=== PATIENT | female | born 2000 | race Caucasian/White ===

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

== ENCOUNTER 2020-05-07 11:50 | Inpatient (IN) | payer OTHER ==
[2020-05-16] MEDS ORDERED: OXYTOCIN 10 UNIT/ML 1 ML VIAL IM PRN (06:10)
[2020-05-16] MEDS ORDERED: LIDOCAINE 0.5% (PF) 5 MG/ML (50 ML SDV) SQ PRN (06:10)
[2020-05-16] MEDS ORDERED: TERBUTALINE 1 MG/ML VIAL SQ PRN (06:10)
[2020-05-16] MEDS ORDERED: CARBOPROST TROMETHAMINE 250 MCG/ML 1 ML AMP IM PRN (06:10)
[2020-05-16] MEDS ORDERED: METHYLERGONOVINE 0.2 MG/ML 1 ML AMP IM PRN (06:10)
[2020-05-16] MEDS: LACTATED RINGERS 1,000 ML IV SCH ×3 (06:23→20:04)
[2020-05-16] MEDS: OXYTOCIN 30 UNITS/500 ML NS 30 UNIT in SALINE 1 500ML.BAG IV SCH ×2 (06:32→16:18)
[2020-05-16 06:49] LABS: Anisocytosis Slight; Basophils # (A) 0.1 k/uL (0-0.2); Basophils % (A) 1 %; Eosinophils # (A) 0.1 k/uL (0-0.7); Eosinophils % (A) 1 %; HCT 32.1 % (34.0-46.0); HGB 10.2 gm/dL (11.4-16.0); Hypochromasia Marked; Lymphocytes # (A) 2.7 k/uL (1.0-4.8); Lymphocytes % (A) 28 %; MCH 22.6 pg (25.0-35.0); MCHC 31.7 g/dL (31.0-37.0); MCV 71.2 fL (80.0-100.0); Mean Platelet Volume 8.8; Microcytosis Moderate; Monocytes # (A) 0.6 k/uL (0-1.0); Monocytes % (A) 6 %; Neutrophils # (A) 6.1 k/uL (1.3-7.7); Neutrophils % (A) 63 %; Platelet Count 303 k/uL (150-450); Poikilocytosis Slight; RBC 4.51 m/uL (3.80-5.40); RDW 16.1 % (11.5-15.5); WBC 9.6 k/uL (4.0-11.0)
[2020-05-16 07:28] LABS: Glucose,Whole Blood 90 mg/dL (75-99)
--- NOTE | 2020-05-16 07:30 | P.HPOB ---
History of Present Illness H&P Date: 05/16/20 Chief Complaint: Here for induction of labor for postdates This is a 20-year-old female 1 para 0 EDC 05/07/2020 by good dating measures presents at 41-2/7 weeks' gestation for induction of labor. Ultrasound yesterday revealed HUYEN of 3, grade 3 placenta. Patient is unable to tolerate pelvic exams. She states fetus is been active throughout the . Past medical history is significant for age 11 cm left ovarian cyst diagnosed in April 2019. Past surgical history significant for right foot surgery as a child. Current medications vitamins daily. ALLERGIES none known. Family history unremarkable. Social history patient works part-time at a local [employer], father of the baby is involved. She is a former smoker, denies alcohol drug use or bleeding with . history blood type is O+, rubella status immune. Gonorrhea and chlamydia cultures, HIV testing, group B strep cultures, hepatitis B surface antigen, urine culture all negative. Rubella status immune. One-hour Glucola 170, three-hour GTT consistent with gestational diabetes. Patient is 5 foot 3 inches, 133 pounds, blood pressure 131/72. Fasting blood sugar 90. General physical exam is within normal limits. Patient show sign of poor nutrition. heart rate is consistent with reactive NST. Cervix is unable to be checked, patient unable to tolerate pelvic exams. In the office yesterday cervix was noted to be quite thin, -1 station, vertex presentation. I was unable to adequately assess cervical dilation in the office yesterday. Impression: 41-2/7 weeks intrauterine , here for induction of labor. All signs reassuring at this time. Plan: Oxytocin has been started. Epidural will be placed at this time. After epidural was placed and we'll check patient's cervix and perform amniotomy. Oxytocin per hospital protocol. Continue close maternal and surveillance. Anticipate normal spontaneous vaginal delivery. manager technical services consult to be ordered. Review of Systems Constitutional: Reports as per HPI Past Medical History Past Medical History: No Reported History Additional Past Medical History / Comment(s): ovarian cysts, gestational diabetes History of Any Multi-Drug Resistant Organisms: None Reported Past Surgical History: No Surgical Hx Reported Additional Past Surgical History / Comment(s): Foot surgery 2017 Past Anesthesia/Blood Transfusion Reactions: No Reported Reaction Past Psychological History: No Psychological Hx Reported Smoking Status: Never smoker Past Alcohol Use History: None Reported Past Drug Use History: None Reported Medications and Allergies Home Medications Medication Instructions Recorded Confirmed Type Pnv No.95/Ferrous Fum/Folic AC 1 each PO DAILY 04/11/20 05/16/20 History [ Multivitamin Tablet] Allergies Allergy/AdvReac Type Severity Reaction Status Date / Time No Known Allergies Allergy Verified 05/14/20 14:31 Exam Vital Signs Temp Pulse Resp BP 05/16/20 06:09 96.6 F L 101 H 16 131/72 Intake and Output 05/15/20 05/16/20 05/16/20 22:59 06:59 14:59 Other: Weight 60.328 kg See dictation under HPI please Results Result Diagrams: 05/16/20 06:17 Abnormal Lab Results - Last 24 Hours (Table) 05/16/20 Range/Units 06:17 Hgb 10.2 L (11.4-16.0) gm/dL Hct 32.1 L (34.0-46.0) % MCV 71.2 L (80.0-100.0) fL MCH 22.6 L (25.0-35.0) pg RDW 16.1 H (11.5-15.5) % Assessment and Plan Assessment: 41-2/7 weeks intrauterine , oligohydramnios, grade 3 placenta, patient unable to tolerate pelvic exams. Her for induction of labor. Plan: Oxytocin has been started. Epidural will be placed at this time. When patient is comfortable I will perform amniotomy. Close maternal and surveillance. Anticipate normal spontaneous vaginal delivery. Time with Patient: Less than 30
[2020-05-16] MEDS ORDERED: SODIUM CHLORIDE 0.9% 100 ML BAG ONE (07:40)
[2020-05-16] MEDS ORDERED: ROPIVACAINE 5MG/ML 20ML VIAL ONE (07:40)
[2020-05-16] MEDS ORDERED: fentaNYL (PF) 50 MCG/ML 5 ML AMP ONE (07:40)
[2020-05-16] MEDS ORDERED: METHYLERGONOVINE 0.2 MG/ML 1 ML AMP ONE (14:45)
[2020-05-16] MEDS ORDERED: OXYTOCIN 10 UNIT/ML 1 ML VIAL ONE (14:45)
[2020-05-16] MEDS ORDERED: MORPHINE SULFATE (PF) 0.3 MG/0.3 ML SYR ONE (14:45)
[2020-05-16] MEDS ORDERED: diphenhydrAMINE 50 MG/ML 1 ML VIAL ONE (14:45)
[2020-05-16] MEDS ORDERED: KETOROLAC 15 MG/ML 1 ML VIAL ONE (14:45)
[2020-05-16] MEDS ORDERED: ONDANSETRON 4 MG/2 ML VIAL ONE (14:45)
[2020-05-16] MEDS ORDERED: DEXAMETHASONE SOD PHOSPHATE 4 MG/ML 1 ML VIAL ONE (14:45)
[2020-05-16] MEDS ORDERED: CITRIC ACID-SODIUM CITRATE 15 ML CUP PO ONE (14:46)
[2020-05-16] MEDS ORDERED: diphenhydrAMINE 25 MG CAP PO PRN (15:44)
[2020-05-16] MEDS ORDERED: METOCLOPRAMIDE 5 MG/ML 2 ML VIAL IVP PRN (15:44)
[2020-05-16] MEDS ORDERED: NALOXONE 0.4 MG/ML 1 ML VIAL IV PRN (15:44)
[2020-05-16] MEDS ORDERED: ZOLPIDEM 5 MG TAB PO PRN (15:44)
[2020-05-16] MEDS ORDERED: diphenhydrAMINE 50 MG/ML 1 ML VIAL IVP PRN ×2 (15:44)
[2020-05-16] MEDS ORDERED: diphenhydrAMINE 50 MG CAP PO PRN (15:44)
[2020-05-16] MEDS ORDERED: SIMETHICONE 80 MG CHEWABLE PO PRN (15:44)
[2020-05-16] MEDS ORDERED: ONDANSETRON 4 MG/2 ML VIAL IVP PRN (15:44)
--- NOTE | 2020-05-16 15:44 | P.OP ---
Date of Procedure: 05/16/20 Preoperative Diagnosis: 41-2/7 weeks intrauterine , oligohydramnios, nonreassuring heart tones. Postoperative Diagnosis: Same, occiput posterior, nuchal cord 1 Procedure(s) Performed: Primary low transverse section Anesthesia: epidural Surgeon: Becka Marquez Communications Project Lead #1: Rose Winn Estimated Blood Loss (ml): 600 IV fluids (ml): 400 Urine output (ml): 150 Pathology: other (Placenta) Condition: stable Disposition: PACU Indications for Procedure: Nonreassuring heart tones for 15-20 minutes in the first stage of labor, cervix dilated to 7-8 cm. Not able to resuscitate fetus with bedside measures. Operative Findings: Liveborn male infant, occiput posterior, nuchal cord 1, normal-appearing left ovary, right ovary and tube within normal limits to inspection but a window in the right serosal meso-salpinx region. Unusual vascularity in the right posterior lower uterine fundus. Description of Procedure: Patient was admitted this morning for induction for postdates , oligohydramnios, grade 3 placenta, gestational diabetes. Artificial amniorrhexis revealed scant meconium stained bloody fluid. Oxytocin was started and titrated. Patient became 7-8 cm dilated at which time heart tones went to the 60s to 80s range. This stayed in this range for 20 minutes despite oxygen administration per facemask, maternal position changes, discontinuation of Pitocin, scalp stimulation, placement of internal scalp lead. Patient is brought back to the operating room, abdomen was prepped and draped in usual sterile fashion. Epidural was topped off at the bedside. 2 g Ancef given. The appropriate timeout is performed. Analgesia is checked and noted to be adequate. A low transverse skin incision is made in this is carried down to the fascia with the present 1 cm of subcutaneous fat. Fascia is isolated, scored, extended bilaterally with curved Marcano scissors. Peritoneum is next identified and incised, no bowel or bladder involvement. Bladder blade is placed over the dome of the bladder and at all times the bladder is Well from the operative field. A low transverse uterine incision is made and extended bluntly. 's head is delivered occiput posterior. There was a nuchal cord 1 that was reduced. Patient is officially delivered of a liveborn male at 1451 hours. Umbilical cord is doubly clamped and ligated, he is handed to waiting photo finish photographer for evaluation where scores of 6 and 9 at one and 5 minutes respectively are given. Placenta is delivered manually, it is inspected and noted to be intact with trivascular cord and meconium stained. It is sent to pathology for further evaluation. Uterus is then externalized and massaged. It is swept clean with a sterile sponge to avoid any retained products of conception. The uterus is closed in a two-step fashion, first layer running locking with 0 Vicryl. Second layer imbricated. The left tube and ovary appear normal to inspection. The right tube and ovary also appeared normal, however there is a window in the right meso-salpinx/uterine serosal region. Posteriorly on the right lower uterine fundus there is abnormal appearing vascularization. An additional [id number] suture is placed in this region, and pressure is applied for excellent hemostasis. The surgical snow was then placed over this area. Hemostasis again is checked and noted to be excellent. The abdomen is suctioned with suction on guard posterior to the uterus. Uterus is placed back into the abdominal cavity. Bilateral gutters are inspected and cleaned. Uterine incision is once again visualized in its entirety and noted to be clean and dry. Peritoneum is allowed to close by secondary intention. Fascia is closed general running stitch of 0 Vicryl suture with over ligation in the midline. Subcutaneous tissue is clean and dry. It is reapproximated with 2-0 Vicryl in a running fashion. 4-0 undyed Monocryl is used for final skin closure. Steri-Strips and Mastisol are applied to the wound. All sponge needle and enhancement counts are correct at the end of this procedure. Uterus is massaged at the bedside, Wells is noted to be draining clear urine. Patient is brought back to the recovery room in very good condition with stable vital signs, clear urine noted in the Wells tube. Patient is requesting circumcision for her infant son.
[2020-05-16] MEDS: SENNOSIDES-DOCUSATE SODIUM 1 EACH TAB PO SCH (20:04)
[2020-05-16] MEDS: KETOROLAC 15 MG/ML 1 ML VIAL IVP SCH (21:00)
[2020-05-17] MEDS: KETOROLAC 15 MG/ML 1 ML VIAL IVP SCH ×2 (04:09→09:52)
[2020-05-17] MEDS: LACTATED RINGERS 1,000 ML IV SCH (04:09)
[2020-05-17 04:34] VITALS: RESP 16
--- NOTE | 2020-05-17 07:28 | P.PN ---
Subjective Progress Note Date: 05/17/20 Principal diagnosis: Operative day #1 Slept well. Minimal pain. No complaints. Objective - Vital Signs Vital signs: Vital Signs Temp 97.6 F 05/17/20 04:00 Pulse 95 05/17/20 04:00 Resp 16 05/17/20 04:00 BP 125/79 05/17/20 04:00 Pulse Ox 98 05/17/20 04:00 Intake & Output 05/16/20 05/17/20 05/17/20 18:59 06:59 18:59 Intake Total 209.767 500 Output Total 300 1350 Balance -90.233 -850 Intake: IV 200 Intake, IV Titration 9.767 Amount Oxytocin 30 Units/500 ml 9.767 Ns 30 unit In Saline 1 500ml.bag @ Per Protocol IV .Q0M [facility] Rx#:[id number] Oral 500 Output: Urine 300 1350 Straight 750 Uretheral (Wells) 300 - Constitutional General appearance: Present: average body habitus, cooperative - EENT Eyes: Present: PERRLA ENT: Present: hearing grossly normal - Neck Neck: Present: normal ROM - Respiratory Respiratory: bilateral: CTA - Cardiovascular Rhythm: regular - Gastrointestinal General gastrointestinal: Present: normal bowel sounds - Genitourinary Genitourinary Comment(s): Incision clean and dry, intact, Steri-Strips applied. Fundus firm, midline, symmetric, 18 week size. - Integumentary Integumentary: Present: normal - Neurologic Neurologic: Present: CNII-XII intact - Musculoskeletal Musculoskeletal: Present: gait normal - Psychiatric Psychiatric: Present: A&O x's 3, appropriate affect, intact judgment & insight - Labs CBC & Chem 7: 05/16/20 06:17 Assessment and Plan Assessment: Doing well day #1 Plan: Continue care. Likely circumcision tomorrow. Time with Patient: Less than 30
--- NOTE | 2020-05-17 07:45 | P.PN ---
Progress Note - Text Date:05/17/20 Time:644am Patient is status post . Patient seen this morning with VAS score of 4.no c/o of pruritus, no c/o nausea/vomiting, comfortable and doing well.
[2020-05-17] MEDS: SENNOSIDES-DOCUSATE SODIUM 1 EACH TAB PO SCH ×2 (09:53→20:58)
[2020-05-17 10:03] LABS: Anisocytosis Slight; Basophils % (A) 0 %; Eosinophils % (A) 0 %; HCT 23.5 % (34.0-46.0); Hypochromasia Marked; Lymphocytes # (A) 2.4 k/uL (1.0-4.8); Lymphocytes % (A) 16 %; MCH 22.6 pg (25.0-35.0); MCHC 31.5 g/dL (31.0-37.0); MCV 71.9 fL (80.0-100.0); Mean Platelet Volume 7.8; Microcytosis Moderate; Monocytes # (A) 0.8 k/uL (0-1.0); Monocytes % (A) 6 %; Neutrophils # (A) 11.4 k/uL (1.3-7.7); Neutrophils % (A) 77 %; Platelet Count 241 k/uL (150-450); Poikilocytosis Slight; RBC 3.27 m/uL (3.80-5.40); RDW 16.2 % (11.5-15.5); WBC 14.8 k/uL (4.0-11.0)
[2020-05-17 10:08] LABS: HGB 7.4 gm/dL (11.4-16.0)
[2020-05-17] MEDS: IBUPROFEN 600 MG TAB PO SCH (16:53)
[2020-05-17] MEDS ORDERED: HYDROcodone/APAP 5-325MG 1 EACH TAB PO PRN ×2 (21:18)
[2020-05-18] MEDS: IBUPROFEN 600 MG TAB PO SCH ×3 (04:37→15:57)
[2020-05-18] MEDS: SENNOSIDES-DOCUSATE SODIUM 1 EACH TAB PO SCH ×2 (08:08→19:59)
--- NOTE | 2020-05-18 12:06 | P.PNOBGPC ---
Subjective - Subjective Patient reports: Reports appetite normal, Reports voiding normally, Reports pain well controlled, Reports ambulating normally : doing well, in NICU Objective - Vital Signs Latest vital signs: Vital Signs Temp Pulse Resp BP Pulse Ox 05/18/20 08:00 98.3 F 83 16 111/55 05/18/20 00:00 97.6 F 90 16 97/57 98 05/17/20 15:30 97.9 F 84 16 118/65 98 Intake and Output 05/17/20 05/18/20 05/18/20 22:59 06:59 14:59 Output Total 500 Balance -500 Output: Urine 500 Other: # Voids 1 1 2 - Exam Extremities: Present: normal Abdomen: Present: normal appearance, soft. Absent: distention, tenderness Incision: Present: normal, dry, intact Uterus: Present: normal, firm (The uterine fundus is time again appropriately tender around the umbilicus.) Assessment and Plan (1) Status post section Current Visit: Yes Status: Acute Code(s): Z98.891 - HISTORY OF UTERINE SCAR FROM PREVIOUS SURGERY SNOMED Code(s): 282269148 Plan: Continue routine postoperative care. The patient is prepared for discharge but her infant remains in the special care nursery for ongoing treatment and will possibly be released tomorrow. As a result, I would anticipate discharge home tomorrow.
[2020-05-19] MEDS: IBUPROFEN 600 MG TAB PO SCH (03:46)
[2020-05-19 09:09] VITALS: BP 112/65; PULSE 69; TEMP 98.1
--- NOTE | 2020-05-19 11:15 | P.DS ---
Providers Date of admission: 05/16/20 06:00 Expected date of discharge: 05/19/20 Attending physician: Becka Marquez Primary care physician: Stated None - Discharge Diagnosis(es) (1) Status post section Current Visit: Yes Status: Acute Hospital Course: The patient is a 20-year-old 1 para 0 admitted at 41-2/7 weeks by good dating parameters. She is admitted for induction of labor secondary to a finding of oligohydramnios along with postdates. Her has otherwise been essentially uncomplicated and group B strep status is negative. On labor and delivery, she had Pitocin started followed by artificial rupture of membranes. She then had an epidural catheter placed for analgesia and progressed to approximate 78 cm at which time heart tones were found to be nonreassuring and bedside measures failed to resuscitate the infant. As a result, she was taken the operating room where she underwent primary low- transverse section for a viable male with Apgars of 6 at 1 minute and 9 at 5 minutes. He was admitted to the special care nursery with ongoing issues of breathing and antibiotic prophylaxis was initiated. The patient's postoperative course was unremarkable with vital signs remained stable and her temperature was afebrile throughout. Her hemoglobin did waldo in the mid sevens though she was asymptomatic throughout. She was deemed stable for discharge by the morning of postoperative day #3 only secondary to the continued treatment of the until postoperative day #3. She was discharged home to follow-up in the office in 2 weeks for an incision check and 6 weeks routinely. Discharge instructions included calling for any significantly increased bleeding or foul-smelling lochia, significantly increased fever or abdominal pain, perineal complaints, breast complaints, incisional complaints, or anything else that concerned her. She is additionally instructed to have nothing in the vagina for at least 6 weeks time to include intercourse and to abstain from any heavy lifting over the same period of time. She was last instructed to do no driving until off of all pain medications or 2 weeks' time, whichever came first. She understood her instructions and agrees to follow up as noted above. Discharge medications included continued vitamins as she has opted to breast-feed. She was additionally instructed to take iron sulfate 1-2 times daily for at least 1-2 months to rebuild her hemoglobin. She was additionally provided with a prescription for Tylenol 3, 1-2 by mouth every 6 hours when necessary pain, #20 dispensed with no refills. Maternal blood type is O+ and rubella status is immune. Discharge hemoglobin and hematocrit were 7.4 and 23.5 respectively. Procedures: #1. Pitocin induction #2. Artificial rupture of membranes #3. Epidural analgesia #4. Primary low-transverse section Patient Condition at Discharge: Stable Plan - Discharge Summary New Discharge Prescriptions: No Action Pnv No.95/Ferrous Fum/Folic AC [ Multivitamin Tablet] 1 each PO DAILY Discharge Medication List Pnv No.95/Ferrous Fum/Folic AC [ Multivitamin Tablet] 1 each PO DAILY 04/11/20 [History] Follow up Appointment(s)/Referral(s): Becka Marquez MD [STAFF PHYSICIAN] - 2 Weeks Discharge Disposition: HOME SELF-CARE
== END 2020-05-19 12:00 | disposition home or self-care (01) | DRG 787 ==
LOC: 4FBP 05-16 06:00
PROVIDERS: ADMIT Obstetrics & Gynecology; ATTEND Obstetrics & Gynecology
PROC: 10907ZC Drainage of Amniotic Fluid, Therapeutic from Products of Conception, Via Natural or Artificial Opening (ICD-10-PCS; principal; 2020-05-16 14:50)
PROC: 10D00Z1 Extraction of Products of Conception, Low, Open Approach (ICD-10-PCS; principal; 2020-05-16 14:50)
PROC: 3E0R3NZ Introduction of Analgesics, Hypnotics, Sedatives into Spinal Canal, Percutaneous Approach (ICD-10-PCS; principal; 2020-05-16 14:50)
PROC: 00HU33Z Insertion of Infusion Device into Spinal Canal, Percutaneous Approach (ICD-10-PCS; principal; 2020-05-16 14:50)
DX: O48.0 Post-term pregnancy (principal); O41.03X0 Oligohydramnios, third trimester, not applicable or unspecified; O24.429 Gestational diabetes mellitus in childbirth, unspecified control; O69.81X0 Labor and delivery complicated by cord around neck, without compression, not applicable or unspecified; O76 Abnormality in fetal heart rate and rhythm complicating labor and delivery; Z37.0 Single live birth; Z3A.41 41 weeks gestation of pregnancy; Z87.891 Personal history of nicotine dependence
CPT/HCPCS: 59025; 85025; 86850; 86900; 86901; 88307; 99213

== ENCOUNTER 2020-05-14 14:14 | Outpatient (CLI) | payer OTHER ==
[2020-05-14 14:51] LABS: Glucose,Whole Blood 84 mg/dL (75-99)
[2020-05-14 16:06] VITALS: BP 131/77; PULSE 108; RESP 16; TEMP 97.2
--- NOTE | 2020-05-17 09:17 | P.MSEPDOC ---
Presenting Problems - Arrival Data Date of Arrival on Unit: 05/14/20 Time of Arrival on Unit: 14:14 Mode of Transport: Ambulatory - Complaint OB-Reason for Admission/Chief Complaint: Rule Out SROM Comment: Pt states gush x 1 at 1330, clear fluid. No continued leaking. Medical History - Information : 1 Para: 0 Term: 0 : 0 Abortions: Spontaneous or Elective: 0 Number of Living Children: 0 - Gestational Age Gestational Age by YARELI (wks/days): 41 Weeks and 0 Days Review of Systems - Review of Systems Constitutional: No problems Breast: No problems ENT: No problems Cardiovascular: No problems Respiratory: No problems Gastrointestinal: No problems Genitourinary: No problems Musculoskeletal: No problems Neurological: No problems Skin: No problems Vital Signs - Temperature Temperature: 97.2 F Temperature Source: Temporal Artery Scan - Pulse Right Sitting Brachial Pulse Rate: 108 Pulse Assessment Method: Automatic Cuff - Respirations Respiratory Rate: 16 Oxygen Delivery Method: Room Air O2 Sat by Pulse Oximetry: 100 - Blood Pressure Right Arm Sitting Blood Pressure: 131/77 Blood Pressure Mean: 95 Blood Pressure Source: Automatic Cuff Medical Screen Scoring (Pre) - Cervical Exam Dilation: 0 cm = 0 Effacement: More than 50% = 2 Membranes: Intact - Uterine Contractions Frequency: > 5 minutes apart = 1 Duration: N/A Intensity: N/A - Maternal Vital Signs Maternal Temperature: N/A Maternal Blood Pressure: N/A Signs of Preeclampsia: N/A Maternal Respirations: N/A - Maternal Trauma Maternal Trauma: N/A - Assessment - Baby A Baseline FHR: 130 Heart Rate - NICHD Category: Category I (Normal) = 0 NST: Reactive Position: N/A Station: N/A - Total Score - Baby A Total Score - Baby A: 3 - Total Score - Baby B Total Score - Baby B: 3 - Total Score - Baby C Total Score - Baby C: 3 - Level of Risk - Baby A Level of Risk - Baby A: Low (0-5) - Level of Risk - Baby B Level of Risk - Baby B: Low (0-5) - Level of Risk - Baby C Level of Risk - Baby C: Low (0-5) Physician Notification (Pre) - Physician Notified Physician Notified Date: 05/14/20 Physician Notified Time: 14:58 New Order Received: Yes - Notification Comment Comment: Spk c\Dr. Marquez, , 41 0/, presents to triage c/o possible SROM at 1330, gush x1, clear, no continued leaking, perineum dry, mothers pad dry, amnisure negative, SVE closed, difficult SVE r/t pts behavior, unable to provide accurate effacement, station high. Reactive NST. GDM-diet controlled, accuchek 84. Pt scheduled for IOL per Dr. Marquez, to follow up in office tomorrow as scheduled. Disposition - Disposition OB Disposition: Physician follow up in office, Discharge to home, Written follow up instructions reviewed Discharge Date: 05/14/20 Discharge Time: 15:50 I agree with the RN Medical Screening Exam: Yes Case reviewed; plan agreed upon as documented in EMR&OBIX.: Yes Comments: Patient was neither seen nor examined by me Diagnosis: FALSE LABOR AT OR AFTER 37 COMPLETED WEEKS OF GESTATION
== END 2020-05-14 15:50 | disposition home or self-care (01) ==
LOC: FBPOP 14:14
PROVIDERS: ATTEND Obstetrics & Gynecology
DX: O47.1 False labor at or after 37 completed weeks of gestation (principal); Z3A.41 41 weeks gestation of pregnancy
CPT/HCPCS: 59025; G0463; 99213

== ENCOUNTER → 2021-04-30 | Outpatient (CLI) | payer OTHER ==
[~2021-04-30] MED LIST: METHOTREXATE SODIUM (PF) 25 MG/ML 2 ML VIAL IM ONE
[2021-04-30 14:33] VITALS: BP 117/75; PULSE 97; RESP 16; TEMP 98.1
[2021-04-30 14:47] LABS: HCT 33.1 % (34.0-46.0); HGB 10.5 gm/dL (11.4-16.0); Hypochromasia Moderate; MCH 25.6 pg (25.0-35.0); MCHC 31.7 g/dL (31.0-37.0); MCV 80.8 fL (80.0-100.0); Mean Platelet Volume 7.3; Platelet Count 423 k/uL (150-450); WBC 10.6 k/uL (3.8-10.6)
[2021-04-30 14:59] LABS: AST 18 U/L (14-36); African American GFR (CKD) >90 (>60 ml/min/1.73 sqM); Blood Urea Nitrogen 3 mg/dL (7-17); Non-African American GFR(CKD) >90 (>60 ml/min/1.73 sqM)
[2021-04-30 15:14] LABS: HCG,Quantitative Serum 5414.8 mIU/mL
== END | disposition home or self-care (01) ==
LOC: PROCWHC3 13:46
PROVIDERS: ATTEND Obstetrics & Gynecology
DX: O00.109 Unspecified tubal pregnancy without intrauterine pregnancy (principal)
CPT/HCPCS: 82565; 84450; 84520; 85027; 84702; 36415; 96402; J9260

== ENCOUNTER → 2021-05-05 | Outpatient (CLI) | payer OTHER | END | disposition home or self-care (01) | LOC: LABWHC1 08:38 | PROVIDERS: ATTEND Obstetrics & Gynecology | DX: O00.109 Unspecified tubal pregnancy without intrauterine pregnancy (principal) | CPT/HCPCS: 36415; 84702 ==

== ENCOUNTER → 2021-05-07 | Outpatient (CLI) | payer OTHER ==
[2021-05-07 14:45] LABS: HCT 32.8 % (37.2-46.3); HGB 9.8 g/dL (12.0-15.0); MCHC 29.9 g/dL (32.0-37.0); MCV 80.2 fL (80.0-97.0); Mean Platelet Volume 9.9 fL (9.5-12.2); NRBC Per 100 WBC 0 /100 WBCS (0.0-0.0); Platelet Count 531 X 10*3/uL (140-440); RBC 4.09 X 10*6/uL (4.10-5.20); RDW 14.5 % (11.5-14.5)
[2021-05-07 15:26] LABS: African American GFR (CKD) 161.7 (60.0-200.0); Blood Urea Nitrogen 6.5 mg/dL (9.0-27.0); Non-African American GFR(CKD) 139.6 (60.0-200.0)
== END | disposition home or self-care (01) ==
LOC: LABWHC1 08:40
PROVIDERS: ATTEND Obstetrics & Gynecology
DX: O00.109 Unspecified tubal pregnancy without intrauterine pregnancy (principal)
CPT/HCPCS: 36415; 82565; 84450; 84520; 84702; 85027

== ENCOUNTER → 2021-05-15 | Outpatient (CLI) | payer OTHER | END | disposition home or self-care (01) | LOC: LABWHC1 10:32 | PROVIDERS: ATTEND Obstetrics & Gynecology | DX: O00.90 Unspecified ectopic pregnancy without intrauterine pregnancy (principal) | CPT/HCPCS: 36415; 84702 ==

== ENCOUNTER → 2021-05-21 | Outpatient (CLI) | payer OTHER | END | disposition home or self-care (01) | LOC: LABWHC1 08:27 | PROVIDERS: ATTEND Obstetrics & Gynecology | DX: O00.90 Unspecified ectopic pregnancy without intrauterine pregnancy (principal) | CPT/HCPCS: 36415; 84702 ==

== ENCOUNTER → 2021-05-28 | Outpatient (CLI) | payer OTHER | END | disposition home or self-care (01) | LOC: LABWHC1 10:11 | PROVIDERS: ATTEND Obstetrics & Gynecology | DX: O00.80 Other ectopic pregnancy without intrauterine pregnancy (principal) | CPT/HCPCS: 36415; 84702 ==

== ENCOUNTER → 2021-06-17 | Outpatient (CLI) | payer OTHER ==
[2021-06-17 19:17] LABS: Basophils # (A) 0.08 X 10*3/uL (0.00-0.10); Basophils % (A) 1.2 %; Eosinophils # (A) 0.25 X 10*3/uL (0.04-0.35); Eosinophils % (A) 3.6 %; HCT 37.2 % (37.2-46.3); HGB 11.1 g/dL (12.0-15.0); Immature Grans, Automated 0.3 %; Lymphocytes # (A) 2.46 X 10*3/uL (0.90-5.00); Lymphocytes % (A) 35.4 %; MCH 23.3 pg (27.0-32.0); MCHC 29.8 g/dL (32.0-37.0); Mean Platelet Volume 10.8 fL (9.5-12.2); Monocytes % (A) 8.6 %; NRBC Per 100 WBC 0 /100 WBCS (0.0-0.0); Neutrophils # (A) 3.54 X 10*3/uL (1.80-7.70); Neutrophils % (A) 50.9 %; Platelet Count 498 X 10*3/uL (140-440); RBC 4.77 X 10*6/uL (4.10-5.20); RDW 15.9 % (11.5-14.5); WBC 6.95 X 10*3/uL (4.50-10.00)
[2021-06-17 19:58] LABS: African American GFR (CKD) 160.3 (60.0-200.0); Anion Gap 9.7 mmol/L (10.00-18.00); Blood Urea Nitrogen 10.8 mg/dL (9.0-27.0); Carbon Dioxide 22.3 mmol/L (20.0-27.5); Non-African American GFR(CKD) 138.3 (60.0-200.0); Potassium 4.4 mmol/L (3.5-5.5)
== END | disposition home or self-care (01) ==
LOC: LABPAT 10:59
PROVIDERS: ATTEND Obstetrics & Gynecology
DX: Z01.812 Encounter for preprocedural laboratory examination (principal); N83.202 Unspecified ovarian cyst, left side
CPT/HCPCS: 36415; 80051; 82565; 82947; 84520; 85025; 87086

== ENCOUNTER 2021-06-24 05:43 | Inpatient (IN) | payer OTHER ==
[2021-06-24] MEDS ORDERED: ONDANSETRON 4 MG/2 ML VIAL IVP ONE (05:50)
[2021-06-24] MEDS ORDERED: SCOPOLAMINE 1 MG/72 HR PATCH TRANSDERM ONE (05:50)
[2021-06-24] MEDS ORDERED: DEXAMETHASONE SOD PHOSPHATE 4 MG/ML 1 ML VIAL IV ONE (05:50)
[2021-06-24] MEDS ORDERED: LIDOCAINE 1% (10MG/ML) FOR IV START INTRADERMA PRN (05:50)
[2021-06-24] MEDS: LACTATED RINGERS 1,000 ML IV SCH ×2 (06:25→17:12)
[2021-06-24] MEDS ORDERED: MIDAZOLAM 2 MG/2 ML VIAL IVP ONE (06:53)
[2021-06-24] MEDS ORDERED: HYDROmorphone 0.5 MG/0.5 ML SYRINGE IVP PRN (07:00)
[2021-06-24] MEDS ORDERED: CELLULOSE,OXIDIZED 1 EACH EACH MISCELLANE ONE (08:07)
[2021-06-24] MEDS ORDERED: ONDANSETRON 4 MG/2 ML VIAL IVP PRN (08:37)
[2021-06-24] MEDS ORDERED: SIMETHICONE 80 MG CHEWABLE PO PRN (08:37)
[2021-06-24] MEDS ORDERED: IBUPROFEN 600 MG TAB PO PRN (08:37)
[2021-06-24] MEDS ORDERED: METOCLOPRAMIDE 5 MG/ML 2 ML VIAL IVP PRN (08:37)
--- NOTE | 2021-06-24 08:37 | P.OP ---
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 Normal-appearing right tube and ovary. Normal-appearing uterus. No evidence of endometriosis. Description of Procedure: Patient is brought to the operating suite where a general anesthetic is administered without difficulty after a spinal with Duramorph is placed. The abdomen is prepped and draped in the usual sterile fashion. Wells catheter to direct drainage. Urine hCG is negative. Antibiotics are given. The appropriate timeout is performed to assure proper patient and procedural identification. A low transverse skin incision is made in this is carried down through the subcutaneous tissue which is approximately 3 cm deep. Fascia is isolated, scored, extended bilaterally with curved Marcano scissors. Peritoneum is next identified and opened atraumatically. Pelvic washings are obtained and sent to pathology. The O'Librado-O'Nur retractor is placed. There are multiple dense adhesions involving the anterior abdominal wall, pelvic sidewall, cul-de-sac, omentum, and pelvic mass. These are gently and systematically taken down using Metzenbaum scissors, DeBakey forcep, and a peanut pusher. Leave the left pelvic mass is mobilized. Joyce clamps are taken across the base and the specimen is removed intact, unruptured, and sent to pathology for evaluation. The pedicle is tied with 0 Vicryl suture, flashed, and retied for excellent hemostasis. The pelvis is generously irrigated. The cul-de-sac, left pelvic sidewall, and left adnexal stump are all within normal limits, hemostatically intact. At this time the right ovary is gently evaluated, appears to be within normal limits to inspection. It is placed back into the pelvic cavity. Surgical's no is placed along the left remaining stump and sidewall to aid in excellent hemostasis. Interceed is then used to wrap the stump as well. Pelvis is clean and dry. Peritoneum is allowed to close by secondary intention. Fascia is closed in a running stitch of 0 Vicryl suture. Subcutaneous tissue is clean and dry. It is reapproximated with 3-0 Vicryl in a running stitch. 4-0 undyed Monocryl is used for final skin closure, Steri-Strips and Mastisol applied to the wound. Jose is noted to be draining clear urine, 250 mL total. Estimated blood loss 50 mL's. Fluid replacement 600. Patient is brought back to recovery room in excellent condition with stable vital signs including blood pressure 109/50, pulse 86.
[2021-06-24] MEDS ORDERED: HYDROmorphone 1 MG/ML 1 ML SYRINGE IVP ONE (08:53)
[2021-06-24] MEDS ORDERED: diphenhydrAMINE 50 MG/ML 1 ML VIAL IVP ONE (09:15)
[2021-06-24] MEDS ORDERED: HYDROmorphone 0.5 MG/0.5 ML SYRINGE IVP ONE (09:17)
[2021-06-24] MEDS ORDERED: SODIUM CHLORIDE 0.9% 1,000 ML IV ONE (09:34)
--- NOTE | 2021-06-24 11:56 | P.ANPRN ---
Procedure Note - Anesthesia - Epidural/Spinal Spinal Time Out Performed: Yes Date of Procedure: 06/24/21 Procedure Start Time: :31 Procedure Stop Time: 07:33 Location of Patient: PreOp Indication: Acute Post-Operative Pain, Requested by Surgeon Sedation Type: Sedate with meaningful contact maintained Preparation: Sterile Prep Position: Sitting Needle Guage: 25 Blood Aspirated: No Pain Paresthesia on Injection Noted: No Events: Uneventful and Well Tolerated (duramorph 300 mics plus fentanyl 25 mics)
[2021-06-24] MEDS: KETOROLAC 15 MG/ML 1 ML VIAL IVP PRN (20:07)
[2021-06-24] MEDS: diphenhydrAMINE 50 MG/ML 1 ML VIAL IVP PRN (20:07)
[2021-06-25] MEDS: diphenhydrAMINE 50 MG/ML 1 ML VIAL IVP PRN (01:59)
[2021-06-25] MEDS: KETOROLAC 15 MG/ML 1 ML VIAL IVP PRN (01:59)
--- NOTE | 2021-06-25 07:19 | P.DS ---
Providers Date of admission: 06/24/21 05:43 Expected date of discharge: 06/25/21 Attending physician: Becka Marquez Primary care physician: Stated None Hospital Course: This is a 21-year-old female who has a history of a chronic left adnexal mass, who presented for surgical removal. Medically patient is well, please see dictated history and physical for details. Yesterday under my care she underwent an exploratory laparotomy, left salpingo- oophorectomy, lysis of adhesions, and pelvic washings. The right ovary appeared normal. Interceed was used to wrap the stump on the left. Please see my dictated operative note for details. This morning the patient is doing well. Incision is clean and dry. Active bowel sounds. Positive flatus. Tolerating regular food. Pain is minimal. No vaginal drainage. Patient is judged to be in good condition for discharge home. She is voiding, ambulating, passing flatus. Vital signs are stable and she has remained afebrile. Patient is being discharged home today in good condition. She will follow-up with me in the office in 2 weeks for incision check. I have reminded her no intercourse, no heavy lifting, she will use [id number] Advil or Aleve or Motrin as needed for pain. I've asked her to call me with any issues with urination or defecation, with any pain not alleviated by [id number] products, with any concerns or issues. Assessment: Doing well postoperative day #1 Patient Condition at Discharge: Good Plan - Discharge Summary Discharge Rx Participant: No New Discharge Prescriptions: No Action No Known Home Medications Discharge Medication List No Known Home Medications 04/30/21 [History] Follow up Appointment(s)/Referral(s): Becka Marquez MD [STAFF PHYSICIAN] - 2 Weeks Discharge Disposition: HOME SELF-CARE
--- NOTE | 2021-06-25 08:28 | P.PN ---
Progress Note - Text Progress Note Date: 06/25/21 Ms. Bailon is a 21-year-old female had a history of postoperative day 1 for Exploratory laparotomy, pelvic washings, adhesio lysis, left salpingo- oophorectomy under general anesthesia, spinal analgesia with Astramorph 300 g , and fentanyl and 25 g for postop pain. Today patient is comfortable sitting in her bed. Patient complaining pain mild itching. Today patient rated her pain level 4 out of 10 in severity. Denied any fever, drowsiness, confusion. Denied any weakness, tingling sensation in her lower extremities. Denied any bowel or bladder problems. Moving all extremities without any difficulty. Able to walk without any difficulties. Vitals: Hemodynamically stable Continue oral pain medication as per primary team
[2021-06-25] MEDS ORDERED: ACETAMINOPHEN TAB 325 MG TAB PO PRN (08:39)
[2021-06-25 09:14] VITALS: RESP 16
[2021-06-25 12:53] VITALS: BP 102/60; PULSE 90; TEMP 98.4
== END 2021-06-25 12:30 | disposition home or self-care (01) | DRG 743 ==
LOC: 2ORMAIN 05:43 → 4FBP 09:03
PROVIDERS: ADMIT Obstetrics & Gynecology; ATTEND Obstetrics & Gynecology
PROC: 0UT10ZZ Resection of Left Ovary, Open Approach (ICD-10-PCS; 2021-06-24)
PROC: 0DNW0ZZ Release Peritoneum, Open Approach (ICD-10-PCS; 2021-06-24)
PROC: 0DNU0ZZ Release Omentum, Open Approach (ICD-10-PCS; 2021-06-24)
PROC: 0UT60ZZ Resection of Left Fallopian Tube, Open Approach (ICD-10-PCS; principal; 2021-06-24 07:30)
DX: D27.1 Benign neoplasm of left ovary (principal); O73.1 Retained portions of placenta and membranes, without hemorrhage; N73.6 Female pelvic peritoneal adhesions (postinfective)
CPT/HCPCS: 81025; 86850; 86900; 86901; 88108; 88305

== ENCOUNTER 2022-11-10 05:45 | Inpatient (IN) | payer OTHER ==
--- NOTE | 2022-11-09 07:03 | P.HPOB ---
History of Present Illness H&P Date: 11/09/22 Chief Complaint: Repeat section, gestational diabetes. This patient is a 22-year-old 3 para 1 female estimated date of confinement 11/17/2022 estimated gestational age 39-0/7 weeks gestation who is admitted to labor and delivery for repeat section and also gestational diabetes. Patient's history such that she sought care with me late at approximately 19 weeks. Previous section was per Dr. Marquez for nonreassuring heart tones. Patient requested repeat section. is also complicated by gestational diabetes. Patient was referred to maternal- medicine and was supposedly getting blood glucoses controlled by them. They contacted me however her last week and states the patient has not been doing any blood glucoses and therefore they have not been treating her with any medications. Patient's had normal growth ultrasounds and nonstress testing. Review of Systems Genitourinary: Reports Menstruation: Reports amenorrhea Past Medical History Past Medical History: No Reported History Additional Past Medical History / Comment(s): ovarian cysts, gestational diabetes. Ectopic - April 2021 History of Any Multi-Drug Resistant Organisms: None Reported Past Surgical History: Section Additional Past Surgical History / Comment(s): Foot surgery 2017; patient had a previous left salpingo-oophorectomy per Dr. Marquez Past Anesthesia/Blood Transfusion Reactions: No Reported Reaction Past Psychological History: No Psychological Hx Reported Smoking Status: Never smoker Past Alcohol Use History: None Reported Past Drug Use History: None Reported Medications and Allergies Home Medications Medication Instructions Recorded Confirmed Type No Known Home Medications 04/30/21 05/11/22 History Allergies Allergy/AdvReac Type Severity Reaction Status Date / Time No Known Allergies Allergy Verified 05/11/22 10:08 Exam - OBG Physical Exam Abdomen: bowel sounds normal, no diffuse tenderness, no bruit present, no guarding noted, no hepatomegaly, no splenomegaly, no mass Vulva: both: normal Cervix: no lesion, no discharge Uterus: enlarged, normal contour Results labs show she is O positive, rubella immune, RPR nonreactive, hepatitis B and C were negative, HIV is nonreactive, Glucola was 180 with 3 abnormal 3 hour gtt. levels. Level III ultrasound was normal. Group B strep was negative Assessment and Plan Assessment: This is a 22-year-old 3 para 1 female estimated gestational age 39 weeks with previous section desires repeat. She also has gestational diabetes and was supposed to be managed by maternal medicine however they indicate she has not been checking her blood sugars. Plan is repeat low transverse section. Patient understands this procedure and risks and risks of infection, bleeding, possible injury bowel, bladder, vessels, and/or other organs. All the patient's questions are answered and a written consent is obtained. (1) 39 weeks gestation of Status: Acute Code(s): Z3A.39 - 39 WEEKS GESTATION OF SNOMED Code(s): 31445764 (2) Previous delivery affecting Status: Acute Code(s): O34.219 - MATERNAL CARE FOR UNSP TYPE SCAR FROM PREVIOUS DEL SNOMED Code(s): 410314177 (3) Gestational diabetes Status: Acute Code(s): O24.419 - GESTATIONAL DIABETES MELLITUS IN , UNSP CONTROL SNOMED Code(s): 22605425 (4) Non compliance with medical treatment Status: Acute Code(s): Z91.199 - PT NONCOMPL WITH OTHER MED TRTMT AND REGIMEN D/T UNSP REASON SNOMED Code(s): 9125885
[2022-11-10 06:24] LABS: Basophils % (A) 0 %; Eosinophils # (A) 0.2 k/uL (0-0.7); Eosinophils % (A) 2 %; HCT 35.3 % (34.0-46.0); HGB 11.4 gm/dL (11.4-16.0); Lymphocytes # (A) 2.6 k/uL (1.0-4.8); Lymphocytes % (A) 27 %; MCH 25.5 pg (25.0-35.0); MCHC 32.2 g/dL (31.0-37.0); MCV 79.3 fL (80.0-100.0); Mean Platelet Volume 9.2; Monocytes # (A) 0.6 k/uL (0-1.0); Monocytes % (A) 6 %; Neutrophils # (A) 5.9 k/uL (1.3-7.7); Neutrophils % (A) 63 %; Platelet Count 262 k/uL (150-450); Poikilocytosis Slight; RBC 4.45 m/uL (3.80-5.40); RDW 14.1 % (11.5-15.5); WBC 9.4 k/uL (3.8-10.6)
[2022-11-10] MEDS ORDERED: METHYLERGONOVINE 0.2 MG/ML 1 ML AMP IM PRN (06:33)
[2022-11-10] MEDS ORDERED: CITRIC ACID-SODIUM CITRATE 15 ML CUP PO ONE (06:33)
[2022-11-10] MEDS ORDERED: LACTATED RINGERS 1,000 ML IV ONE (06:33)
[2022-11-10] MEDS ORDERED: LACTATED RINGERS 1,000 ML IV SCH (06:33)
[2022-11-10] MEDS ORDERED: miSOPROStoL 200 MCG TAB PO PRN (06:33)
[2022-11-10] MEDS ORDERED: OXYTOCIN 10 UNIT/ML 1 ML VIAL IM PRN (06:33)
[2022-11-10] MEDS ORDERED: CARBOPROST TROMETHAMINE 250 MCG/ML 1 ML AMP IM PRN (06:33)
[2022-11-10] MEDS ORDERED: TRANEXAMIC 1,000 MG/100ML-NACL 1,000 MG in EMPTY BAG 1 BAG IV PRN (06:33)
[2022-11-10] MEDS ORDERED: ONDANSETRON 4 MG/2 ML VIAL ONE (07:53)
[2022-11-10] MEDS ORDERED: NALBUPHINE 10 MG/ML (10 ML MDV) ONE (07:53)
[2022-11-10] MEDS ORDERED: PROPOFOL 10 MG/ML 20 ML VIAL IV ONE (07:53)
[2022-11-10] MEDS ORDERED: MORPHINE SULFATE (PF) 0.3 MG/0.3 ML SYR ONE (07:53)
[2022-11-10] MEDS ORDERED: KETOROLAC 15 MG/ML 1 ML VIAL ONE (07:53)
[2022-11-10] MEDS ORDERED: OXYTOCIN 30 UNITS/500 ML NS BAG IV ONE (07:53)
[2022-11-10] MEDS ORDERED: PHENYLEPHRINE-0.9% NACL SYG 1,000 MCG/10 ML SYRINGE ONE (07:53)
[2022-11-10] MEDS ORDERED: MIDAZOLAM 2 MG/2 ML VIAL ONE (07:53)
[2022-11-10] MEDS ORDERED: ePHEDrine 50 MG/ML 1 ML VIAL ONE (07:53)
[2022-11-10] MEDS ORDERED: NALOXONE 0.4 MG/ML 1 ML VIAL IV PRN ×2 (08:37→08:42)
[2022-11-10] MEDS ORDERED: diphenhydrAMINE 25 MG CAP PO PRN (08:42)
[2022-11-10] MEDS ORDERED: ZOLPIDEM 5 MG TAB PO PRN (08:42)
[2022-11-10] MEDS ORDERED: ONDANSETRON 4 MG/2 ML VIAL IVP PRN (08:42)
[2022-11-10] MEDS ORDERED: LANOLIN CREAM 5 GM TUBE TOPICAL PRN (08:42)
[2022-11-10] MEDS ORDERED: diphenhydrAMINE 50 MG/ML 1 ML VIAL IVP PRN (08:42)
[2022-11-10] MEDS ORDERED: SIMETHICONE 80 MG CHEWABLE PO PRN (08:42)
[2022-11-10] MEDS ORDERED: OXYTOCIN 30 UNITS/500 ML NS 30 UNIT in SALINE 1 500ML.BAG IV SCH (08:42)
[2022-11-10] MEDS ORDERED: METOCLOPRAMIDE 5 MG/ML 2 ML VIAL IVP PRN (08:42)
--- NOTE | 2022-11-10 08:47 | P.OP ---
Date of Procedure: 11/10/22 Preoperative Diagnosis: #1: 39-0/7 week intrauterine . #2: Previous section desires repeat. #3: Gestational diabetes with noncompliant care Postoperative Diagnosis: #1: Same. #2: Broad ligament window Procedure(s) Performed: Repeat low transverse section., Closure of right broad ligament window Anesthesia: spinal Surgeon: Kentrell Monzon Coat Baster #1: Lina Newell Estimated Blood Loss (ml): 800 Pathology: other (Placenta) Condition: stable Disposition: floor Indications for Procedure: Please see dictated H&P for intimate details of this patient's admission. In brief summary this is a 22-year-old 3 para 1 female 39 weeks gestation who presents to labor and delivery for elective repeat section. Patient and I have discussed the surgery and risks and risks of infection, bleeding, possible injury bowel, bladder, vessels, and/or other organs. All the patient's questions are answered and a written consent is obtained. Operative Findings: This patient had a viable female infant Apgars 8 and 9 delivery time was 0810 hours. It was approximately 4-5 cm window in the right broad ligament from her previous section with small bowel protruding through. Description of Procedure: This patient has a Wells catheter placed to straight drain. She is subsequently taken to the operating room where she sat up and spinal anesthetic is administer ed without incident. With an adequate level of anesthesia she has abdominal prep and drape. After the appropriate timeout is done, a scalpel is taken in the previous Pfannenstiel incision is incised. A second scalpel is taken down to the fascia and the fascia scored with a knife. Fascial incision extended bilaterally using the Marcano scissors. Fascia is developed sharply off the rectus muscles. At this point it is noted there is a peritoneal window. The peritoneum was then extended superior and inferior without difficulty. There is also some omental adhesions to this area. With this completed the bladder blade is placed. The bladder is very low. A scalpel is taken a low transverse uterine incision is made. Using a hemostat I into the uterine cavity bluntly and I carefully bluntly extending the incision. Infant's head is then guided through the incision with fundal pressure. Mouth and nares are bulb suctioned. There is a nuchal cord 1 which is reduced. With more fundal pressure we then have deliver the rest this infant's body. This is a vigorous viable female Apgars are 8 and 9 delivery time is 0810 hours. After delivery of the infant the infant the umbilical cord is doubly clamped and cut the is handed off to the nurses in attendance. The placenta is then manually extracted intact. Uterus is then externalized. Uterine incision demarcated with P [place] clamps and then closed using 0 Vicryl running locked fashion 2 layers. Additional [id number] stitches are placed on the left edge due to bleeding and this is found to be anesthetic after this. I then inspected the rest of the uterus and there is a 4-5 cm window in the right all the ligament from her previous section. There is a small piece of bowel was protruding in this area. This reason I think it is best to close the serious using a 3-0 Vicryl I do a running closure of the peritoneum and the defect is reproduced. Excellent results are noted. Excess fluid is removed from the abdomen and pelvis. Also some bleeding from the left posterior side another [id number] stitches placed. With all hemostatic excess fluid is removed from the abdomen and pelvis. Uterus placed back into the abdomen. Final inspection shows excellent hemostasis. This completed the peritoneum is identified and closed using a 3-0 Vicryl. The rectus muscles reapproximated using 0 Vicryl interrupted fashion. Fascial incision then closed using 0 PDS. Fascial incision is intact and hemostatic. Subcutaneous tissues and closed using a 3-0 Vicryl. Skin is and closed using elver. All counts are correct 3. There are no complications. and mother are taken to the birthing suite in satisfactory condition.
[2022-11-10] MEDS: SENNOSIDES-DOCUSATE SODIUM 1 EACH TAB PO SCH ×2 (10:01→18:50)
[2022-11-10] MEDS: ACETAMINOPHEN TAB 500 MG TAB PO SCH ×3 (11:00→23:13)
[2022-11-10] MEDS: LACTATED RINGERS 1,000 ML IV SCH ×2 (12:00→19:04)
[2022-11-10] MEDS: IBUPROFEN 600 MG TAB PO SCH (18:41)
[2022-11-10] MEDS: KETOROLAC 15 MG/ML 1 ML VIAL IVP SCH (18:47)
[2022-11-11] MEDS: KETOROLAC 15 MG/ML 1 ML VIAL IVP SCH ×2 (01:21→07:54)
[2022-11-11] MEDS: IBUPROFEN 600 MG TAB PO SCH ×3 (04:05→22:27)
[2022-11-11] MEDS: LACTATED RINGERS 1,000 ML IV SCH (04:05)
[2022-11-11 04:16] VITALS: RESP 16
[2022-11-11] MEDS: ACETAMINOPHEN TAB 500 MG TAB PO SCH ×3 (05:05→19:25)
[2022-11-11 06:01] LABS: Basophils # (A) 0.1 k/uL (0-0.2); Basophils % (A) 1 %; Eosinophils # (A) 0.1 k/uL (0-0.7); Eosinophils % (A) 2 %; HCT 34.1 % (34.0-46.0); HGB 10.9 gm/dL (11.4-16.0); Hypochromasia Slight; Lymphocytes # (A) 2.5 k/uL (1.0-4.8); Lymphocytes % (A) 27 %; MCH 25.5 pg (25.0-35.0); MCHC 31.9 g/dL (31.0-37.0); MCV 79.8 fL (80.0-100.0); Monocytes # (A) 0.8 k/uL (0-1.0); Monocytes % (A) 8 %; Neutrophils # (A) 5.7 k/uL (1.3-7.7); Neutrophils % (A) 61 %; Platelet Count 228 k/uL (150-450); Poikilocytosis Slight; RBC 4.28 m/uL (3.80-5.40); RDW 14.1 % (11.5-15.5); WBC 9.4 k/uL (3.8-10.6)
--- NOTE | 2022-11-11 06:04 | P.PNOBGPC ---
Subjective - Subjective Patient reports: Reports appetite normal, Reports voiding normally, Reports pain well controlled, Reports ambulating normally : doing well Objective - Vital Signs Latest vital signs: Vital Signs Temp Pulse Resp BP Pulse Ox 11/11/22 05:00 16 11/11/22 04:00 98.1 F 76 16 106/64 98 11/11/22 03:00 70 17 104/62 11/11/22 01:00 17 11/10/22 23:44 97.9 F 98 17 111/61 98 11/10/22 23:00 17 11/10/22 21:00 17 11/10/22 20:00 97.8 F 71 16 124/84 98 11/10/22 19:00 16 98 11/10/22 16:00 98.4 F 65 16 105/55 98 11/10/22 14:43 16 11/10/22 13:00 16 98 11/10/22 12:00 97.6 F 65 16 107/57 100 11/10/22 11:37 16 11/10/22 10:37 96.1 F L 62 16 101/58 100 11/10/22 10:07 61 16 111/64 99 11/10/22 09:37 62 16 114/62 98 11/10/22 09:22 81 16 111/61 96 11/10/22 09:07 85 16 110/60 99 11/10/22 08:52 85 16 119/63 97 11/10/22 08:37 96.7 F L 99 16 118/64 93 L 11/10/22 06:32 97.1 F L 121 H 15 118/74 100 Intake and Output 11/10/22 11/10/22 11/11/22 14:59 22:59 06:59 Intake Total 2200 Output Total 850 2400 600 Balance -850 -200 -600 Intake: Oral 2200 Output: Urine 200 2400 600 Output, Quantitative 650 Blood Loss - Exam Lungs: bilateral: normal Chest: Normal S1, Normal S2 Extremities: Present: normal Abdomen: Present: normal appearance, soft. Absent: distention, tenderness Incision: Present: normal, dry, intact Uterus: Present: normal, firm - Labs Labs: Abnormal Lab Results - Last 24 Hours (Table) 11/10/22 11/11/22 Range/Units 06:00 04:50 Hgb 10.9 L (11.4-16.0) gm/dL MCV 79.3 L 79.8 L (80.0-100.0) fL Assessment and Plan Assessment: Post operative day #1. Patient is resting without new complaints. She has been unable to urinate secondary to the Duramorph spinal straight catheter 600 mL of urine. Patient is tolerating regular diet and ambulating. Plan today is to check a CBC, encourage ambulation, patient will continue to attempt to urinate, and allow the patient to shower. (1) 39 weeks gestation of Current Visit: No Status: Acute Code(s): Z3A.39 - 39 WEEKS GESTATION OF PREG NATALYA SNOMED Code(s): 67016976 (2) Previous delivery affecting Current Visit: No Status: Acute Code(s): O34.219 - MATERNAL CARE FOR UNSP TYPE SCAR FROM PREVIOUS DEL SNOMED Code(s): 662436350 (3) Gestational diabetes Current Visit: No Status: Acute Code(s): O24.419 - GESTATIONAL DIABETES MELLITUS IN , UNSP CONTROL SNOMED Code(s): 63628486 (4) Non compliance with medical treatment Current Visit: No Status: Acute Code(s): Z91.199 - PT NONCOMPL WITH OTHER MED TRTMT AND REGIMEN D/T UNSP REASON SNOMED Code(s): 7957941
--- NOTE | 2022-11-11 12:50 | P.PN ---
Progress Note - Text Progress Note Date: 11/11/22 Anesthesia Postop day 1 Subjective: Status Post section with Duramorph. Patient seen and examined. Doing well without complaint. VAS 0. No nausea or vomiting. Mild pruritus tolerable.. Afebrile. Gross lower extremity strength intact. Without apparent anesthetic complications. Objective: Vital signs reviewed Heart: Regular Rate Lungs: Good chest excursion Abdomen: Appears nondistended Assessment: Status post with Duramorph postop day 1 Plan: Continue current care with your medical management. Anticipated and the Duramorph section around time today. You may see increased pain needs around this time.
[2022-11-11] MEDS: SENNOSIDES-DOCUSATE SODIUM 1 EACH TAB PO SCH ×2 (13:19→19:25)
[2022-11-12] MEDS: ACETAMINOPHEN TAB 500 MG TAB PO SCH ×2 (03:10→09:51)
[2022-11-12] MEDS: IBUPROFEN 600 MG TAB PO SCH ×2 (05:18→11:36)
--- NOTE | 2022-11-12 06:05 | P.PNOBGPC ---
Subjective - Subjective Patient reports: Reports appetite normal, Reports voiding normally, Reports pain well controlled, Reports ambulating normally : doing well Objective - Vital Signs Latest vital signs: Vital Signs Temp Pulse Resp BP Pulse Ox 11/12/22 00:00 98.7 F 78 16 99/68 98 11/11/22 16:00 98.4 F 72 16 115/70 11/11/22 08:00 98.2 F 65 16 112/68 Intake and Output 11/11/22 11/11/22 11/12/22 14:59 22:59 06:59 Intake Total 960 Output Total 1999 Balance -1999 960 Intake: Oral 960 Output: Urine 1999 Other: # Voids 1 1 1 - Exam Lungs: bilateral: normal Chest: Normal S1, Normal S2 Extremities: Present: normal Abdomen: Present: normal appearance, soft. Absent: distention, tenderness Incision: Present: normal, dry, intact Uterus: Present: normal, firm Assessment and Plan Assessment: Post operative day #2. Patient is resting without new complaints. Vital signs are stable she's afebrile. Uterus is firm nontender she is having normal lochia. Her incision is intact and dry. CBC yesterday was normal. Patient's ambulating, urinating, and tolerating regular diet. Patient does want to go home today. Plan is to continue routine care and discharge home later this morning. (1) 39 weeks gestation of Current Visit: No Status: Acute Code(s): Z3A.39 - 39 WEEKS GESTATION OF SNOMED Code(s): 27899344 (2) Previous delivery affecting Current Visit: No Status: Acute Code(s): O34.219 - MATERNAL CARE FOR UNSP TYPE SCAR FROM PREVIOUS DEL SNOMED Code(s): 356709194 (3) Gestational diabetes Current Visit: No Status: Acute Code(s): O24.419 - GESTATIONAL DIABETES MELLITUS IN , UNSP CONTROL SNOMED Code(s): 31459040 (4) Non compliance with medical treatment Current Visit: No Status: Acute Code(s): Z91.199 - PT NONCOMPL WITH OTHER MED TRTMT AND REGIMEN D/T UNSP REASON SNOMED Code(s): 7205747
--- NOTE | 2022-11-12 06:12 | P.DS ---
Providers Date of admission: 11/10/22 05:45 Expected date of discharge: 11/12/22 Attending physician: Kentrell Monzon Primary care physician: Stated None - Discharge Diagnosis(es) (1) 39 weeks gestation of Current Visit: No Status: Acute (2) Previous delivery affecting Current Visit: No Status: Acute (3) Gestational diabetes Current Visit: No Status: Acute (4) Non compliance with medical treatment Current Visit: No Status: Acute Hospital Course: Please see dictated H&P and operative note on this patient's admission. Brief summary this is a 22-year-old 2 para 1 female 39-0/7 weeks gestation due to labor and delivery for elective repeat section. Patient undergoes repeat low transverse section for viable female infant. Please see dictated operative note. Postoperatively patient's doing well and on postoperative day #2 spell to be stable for discharge home follow up with me in 1 week. Procedures: Repeat low transverse section Patient Condition at Discharge: Good Plan - Discharge Summary New Discharge Prescriptions: New Ibuprofen [Motrin] 600 mg PO Q6H #40 tab oxyCODONE HCL [OxyIR] 5 mg PO Q4HR PRN #18 tab PRN Reason: Pain Scale 4 - 6 No Action Vit No.179/Iron/Folic [ Tablet] 1 each PO Discharge Medication List Vit No.179/Iron/Folic [ Tablet] 1 each PO 11/10/22 [History] Ibuprofen [Motrin] 600 mg PO Q6H #40 tab 11/12/22 [Rx] oxyCODONE HCL [OxyIR] 5 mg PO Q4HR PRN #18 tab 11/12/22 [Rx] Follow up Appointment(s)/Referral(s): Kentrell Monzon MD [STAFF PHYSICIAN] - 12/22/22 11:15 am (Post Op Appointment 11-18-2022 at 1:30) Patient Instructions/Handouts: (DC) Activity/Diet/Wound Care/Special Instructions: No strenuous activity or heavy lifting for 6 weeks. No intercourse or anything per vagina for 6 weeks. Please call if any fever, chills, excessive vaginal bleeding, and/or abdominal pain Discharge Disposition: HOME SELF-CARE
[2022-11-12 15:45] VITALS: BP 111/70; PULSE 70; TEMP 98.1
== END 2022-11-12 11:39 | disposition home or self-care (01) | DRG 540 ==
LOC: 4FBP 05:45
PROVIDERS: ADMIT Obstetrics & Gynecology; ATTEND Obstetrics & Gynecology
PROC: 10D00Z1 Extraction of Products of Conception, Low, Open Approach (ICD-10-PCS; principal; 2022-11-10 08:00)
DX: O24.429 Gestational diabetes mellitus in childbirth, unspecified control (principal); O34.211 Maternal care for low transverse scar from previous cesarean delivery; Z37.0 Single live birth; Z3A.39 39 weeks gestation of pregnancy; Z91.199 Patient's noncompliance with other medical treatment and regimen due to unspecified reason; L29.9 Pruritus, unspecified
CPT/HCPCS: 83036; 85025; 86850; 86900; 86901; 88307